=== PATIENT | male | born 1990 | race African-American/Black ===

== ENCOUNTER 2025-02-02 16:57 | Emergency (ER) | payer SELFPAY ==
--- NOTE | ~2025-02-02 | XR_ITS ---
CHEST RADIOGRAPH, PA AND LATERAL CLINICAL HISTORY: LEFT MID BACK PAIN X 5 DAYS, NO TRAUMA . COMPARISON: None available TECHNIQUE: PA and lateral views of the chest. FINDINGS The cardiomediastinal silhouette is unremarkable. The lungs are clear. IMPRESSION: No focal infiltrate or effusion. Reviewed, dictated and finalized at location A.
[2025-02-02 16:59] VITALS: BP 141/98; PULSE 98; RESP 16; TEMP 36.8; O2SAT 100
--- NOTE | 2025-02-02 17:24 | ED_ITS ---
HPI - Back Pain/Injury General Chief Complaint: Back Pain/Injury Stated Complaint: back pain Time Seen by Provider: 02/02/25 17:16 Source: patient Mode of arrival: ambulatory Limitations: no limitations History of Present Illness HPI Narrative: 34 YEARS OLD MALE CAME TO THE ED BY PRIVATE CAR COMPLAINING OF WAKING UP WITH LEFT MID BACK PAIN AROUND LEFT LOWER RIBS STARTED 5 DAYS AGO. PATIENT DENIES ANY TRAUMA, PATIENT BELIEVE SLEEPING WRONG HIGH LIKELY THE UNDERLYING CAUSE OF HIS PAIN. PATIENT BEEN USING MUSCLE RELAXANT WITHOUT ANY IMPROVEMENT. PAIN IS SHARP, STABBING, WORSE WITH ANY MOVEMENT INCLUDING DEEP BREATHING AND YAWNING AND TRYING TO GET UP FROM SITTING POSITION OR SITTING FROM STANDING POSITION. PATIENT DENIES ANY FEVER, CHILLS, RADIATION OF PAIN, CHEST PAIN, SHORTNESS OF BREATH. Related Data Allergies Allergy/AdvReac Type Severity Reaction Status Date / Time No Known Allergies Allergy Verified 02/02/25 16:58 Review of Systems Review of Systems: All systems reviewed & are unremarkable except as noted in HPI and below Exam Narrative: GENERAL APPEARANCE: WELL-DEVELOPED, WELL-NOURISHED SKIN: NORMAL COLOR HEAD: NORMOCEPHALIC, NONTRAUMATIC EYES: CLEAR CONJUNCTIVA ENT: OROPHARYNX NORMAL, EARS NORMAL, NOSE NORMAL NECK: SUPPLE, NONTENDER CHEST AND RESPIRATORY: AIRWAY PATENT, NO RESPIRATORY DISTRESS, NO ACCESSORY MUSCLE USE HEART: REGULAR RATE/RHYTHM ABDOMEN: SOFT, NONTENDER, NO ORGANOMEGALY, QUIET BOWEL SOUNDS VASCULAR: NORMAL PERIPHERAL PULSES, NORMAL CAPILLARY REFILL. 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, NO GROSS MOTOR DEFICIT Course Vital Signs Vital signs: Vital Signs Temperature 36.8 C 02/02/25 16:59 Pulse Rate 98 02/02/25 16:59 Respiratory Rate 16 02/02/25 16:59 Blood Pressure 141/98 H 02/02/25 16:59 Pulse Oximetry 100 02/02/25 16:59 Temperature 36.8 C 02/02/25 16:59 Pulse Rate 98 02/02/25 16:59 Respiratory Rate 16 02/02/25 16:59 Blood Pressure 141/98 H 02/02/25 16:59 Pulse Oximetry 100 02/02/25 16:59 MDM - Back Pain/Injury MDM Narrative Medical decision making narrative: PATIENT WAKE UP WITH MID BACK PAIN STARTED 5 DAYS AGO, NO TRAUMA VITAL SIGNS ARE STABLE PHYSICAL EXAMINATION SHOWING [id number] TENDERNESS LEFT MID BACK AT THE LOWER RIBS AREA, DIFFERENTIAL DIAGNOSIS INCLUDE MUSCULOSKELETAL, PNEUMONIA, PNEUMOTHORAX, SHINGLES. CHEST X-RAY ORDERED AND SHOWED NO ACUTE ABNORMALITY PATIENT RECEIVED IBUPROFEN AND TYLENOL IN THE ED PRIOR TO DISCHARGE. Differential Diagnosis Differential diagnosis: Likely other ( ABOVE) Imaging Data Radiologist's impression: Impressions Chest X-Ray 02/02/25 17:58 IMPRESSION: No focal infiltrate or effusion. Discharge Plan Discharge Clinical Impression: Back pain Patient Disposition: Home Condition: Stable Instructions: Back Pain (ED) Additional Instructions: RETURN IF SYMPTOMS ARE WORSENING , CALL YOUR FAMILY PHYSICIAN FOR APPOINTMENT, TAKE TYLENOL NEEDED FOR ACHES AND PAIN, CONTINUE HOME MEDICATIONS. HEATING PAD MASSAGE BACK EXERCISE Patient Language: Vietnamese Prescriptions: New diclofenac sodium 75 mg tablet,delayed release (DR/EC) 75 mg PO BID PRN (Reason: pain) Qty: 14 0RF cyclobenzaprine 10 mg tablet 10 mg PO TID PRN (Reason: muscle spasm) Qty: 20 0RF Follow-up/Referrals: PHYSICIAN NOT ON STAFF,NONSTAFF [Primary Care Provider] -
--- OUTSIDE RECORDS SUMMARY | 2025-02-02 18:37 | XMS_ITS | Clinical Summary ---
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 Gender Identity Not on file Sexual Orientation Not on file Plan of Treatment Health Maintenance Due Date Last Done Comments Hepatitis C Virus (HCV) Screening 1989 TdaP Immunization 1989 Human Papillomavirus (HPV) Immunization (1 - 3-dose SCDM series) 2016 SARS-COV-2 Immunization (2023- season) 2024 Influenza Immunization (#1) 2025 Respiratory Syncytial Virus (RSV) Immunization (Adult) (1 - 1-dose 75+ series) 2064 Hepatitis B Immunization Completed 999, 11/18/1997, 08/28/1997 DTaP/Tdap/Td Immunization Discontinued 2003, 07/27/1994, 01/02/1991, Additional history exists Meningococcal Immunization (ACWY) Aged Out No longer eligible based on patient's age to complete this topic Pneumococcal Immunization Combined Aged Out No longer eligible based on patient's age to complete this topic Rotavirus Immunization Aged Out No lo nger eligible based on patient's age to complete this topic
--- OUTSIDE RECORDS SUMMARY | 2025-02-02 18:37 | XMS_ITS | Clinical Summary ---
Author Organization [facility] Address [address] [place] [address] Phone Care Team Providers Care Solutions Engineer Name Role Phone Sunday Botello DO Primary Care Provid er Allergies No known active allergies Medications valACYclovir (VALTREX) 500 mg tablet TAKE 1 TABLET(500 MG) BY MOUTH TWICE DAILY FOR 3 DAYS 6 tablet 2 10/04/2023 Active escitalopram (LEXAPRO) 5 mg tabletIndication s:Anxiety Take 1 tablet (5 mg total) by mouth daily 30 tablet 3 12/27/2023 Active propranoloL (INDERAL) 10 mg tabletIndication s:Anxiety Take 1 tablet (10 mg total) by mouth 2 (two) times a day as needed (anxiety) 60 tablet 3 12/27/2023 Active Active Problems Problem Noted Date Diagnosed Date BMI 29.0-29.9,adult 10/04/2023 Assessment & Plan (10/04/2023 10:01 AM CDT): BMI Follow-up includes: nutrition counseling, exercise counseling, and education provided. Encounter for preventive health examination 09/17 Assessment & Plan (10/04/2023 10:54 AM CDT): -Continue tobacco avoidance, alcohol consumption in moderation, if any -Continue excellent lifestyle with regular aerobic and strength training exercise -Obtain baseline CMP, CBC, lipid panel today -There is no specific style of eating that has been shown to be better than another as far as achieving weight loss. I do recommend a diet high in fresh fruits/vegetables, high in whole grains, high in omega 3 fatty acids, low in saturated fats, low in processes foods, and low in sugary drinks. Some examples of common eating style that people try include ketogenic diet, Mediterranean diet, intermittent fasting. In general, most people do not need more than 2000 calories per day. It can be occasionally helpful to track how many calories one is consuming to establish a baseline. Cutting back 300-500 calories per day from the baseline will often gradually lead to sustained weight loss. An important thing to remember is to think of this as a complete lifestyle change as opposed to going on a diet temporarily. Find a style of eating that works for you and feels like it will be sustainable for the oysterman. -I encourage at least 300 minutes of light intensity activity/week, 150 minutes of moderate intensity physical activity per week, or 90 minutes of high intensity activity/week. Think about this as the Sing, Talk, Breathe Method. This means you should be able to sing during light intensity workout, talk during moderate intensity workout, and only breathe during high intensity workout. Ideally this should be a combination of aerobic activity for cardiovascular health and resistance training to increase muscle mass and bone density. -I recommend at least 7.5 hours of sleep time per night. If feasible, it can be useful to obtain a fitness tracking device which monitor sleep patterns to ensure that you are getting enough sleep. -If interested in building muscle mass, I recommend resistance training between 12-20 sets per week for the targeted muscle group. Rep ranges between 6-20 are effective for muscle building as long as each set is taken close to failure. I also recommend 1.5g protein per kg of body weight daily, and sleeping at least 7.5 hours per night. If interested, it is safe to take creatine supplementation 5g daily with food (can cause intestinal discomfort when taken without food). Routine screening for STI (sexually transmitted infection) 10/04/2023 Assessment & Plan (10/04/2023 10:54 AM CDT): Reviewed his ex-girlfriend's recent Trichomonas diagnosis. Will send STD panel. Anogenital herpes simplex virus (HSV) infection 10/04/2023 Assessment & Plan (10/04/2023 10:55 AM CDT): No active lesions, refilled Valacyclovir Genital warts 10/04/2023 Assessment & Plan (10/04/2023 10:59 AM CDT): Referral to dermatology due to extent of lesions Unilateral recurrent inguina l hernia without obstruction or gangrene 10/04/2023 Assessment & Plan (10/04/2023 10:59 AM CDT): Referral to surgery Family history of diabetes mellitus type II 09/17 Assessment & Plan (10/04/2023 11:00 AM CDT): Multiple family members, follow-up A1c, lipid, CMP Anxiety with depression 10/04/2023 Assessment & Plan (10/04/2023 11:01 AM CDT): Related to concerns over finances. Start Lexapro 5 mg, follow-up in 1 month. Start p.r.n. propranolol for moments of acute anxiety. Will try to avoid benzodiazepines. Need for hepatitis C screening test 10/04/2023 Assessment & Plan (10/04/2023 11:00 AM CDT): Check labs today Infertility counseling 10/04/2023 Assessment & Plan (10/04/2023 11:00 AM CDT): He is requesting further evaluation as he is concerned about his ability to have children. Refer to Reproductive Endocrinology Resolved Problems Problem Noted Date Diagnosed Date Resolved Date Anxiety 10/04/2023 10/04/2023 Immunizations Immunization Administration Dates Next Due DTP 07/27/1994, 1,01/10/1990,1989,0 1989 Hep A, Pediatric 01/19/2004 Hep B, Adolescent or Pediatric 05/03/1999,1997,08/28/1997 HiB 10/04/1990 Influenza, Unspecified 10/04/2023(Deferred: Kezia ent Refused) MMR 07/27/1994,10/04/1990 OPV 07/27/1994,01/02/1991,1989 ,1989 Td, adsorbed 01/19/2004 Medical History Medical History Date Comments HSV (herpes simplex virus) infection Anxiety Inguinal hernia Meningitis as a child Lichen planus diagnosed by ped iatrician at 7yo Family History Medical History Relation Name Comments No Known Problems Brother Diabetes type II Father Diabetes type II Mother HTN Mother Diabetes type II Paternal Grandmother No Known Problems Sister Relation Name Status Comments Brother Alive Father Alive Mother Alive Paternal Grandmother Sister Alive Social History Tobacco Use Types Packs/Day Years Used Date Smoking Tobacco: Some Days Vaping Tobacco Cessation:Ready to Q uit: Not Asked; Counseling Given: Not Answered AUDIT-C Answer Date Recorded Q1: How often do you have a drink containing alc ohol? 2-4 times a month 10/04/2023 Q2: How many drinks containi ng alcohol do you have on a typical day when you are drinking? 1 or 2 10/04/2023 Q3: How often do you have si x or more drinks on one occasion? Less than monthly 10/04/2023 PHQ-2 Answer Date Recorded PHQ-2 Total Score (If total score is 3 or more points, staff should administer the PHQ-9) 6 10/04/2023 Exercise Vital Sign Answer Date Recorde d On average, how many days pe r week do you engage in moderate to strenuous exercise (like a brisk walk)? 1 day 10/04/2023 On average, how many minutes do you engage in exercise at this level? 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 Gender Identity Not on file Sexual Orientation Not on file Obstetrics History Last Filed Vital Signs Vital Sign Reading Time Taken Comments Blood Pressure 130/78 10/04/2023 9:56 AM CDT Pulse 107 10/04/2023 9:56 AM CDT Temperature 37.2 C (98.9 F) 09/08/2022 9:00 PM CDT Respiratory Rate 16 09/08/2022 7:47 PM CDT Oxygen Saturation 97% 10/04/2023 9:56 AM CDT Inhaled Oxygen Concentration - - Weight 96.6 kg (213 lb) 10/04/2023 9:56 AM CDT Height 180.3 cm (5' 11) 10/04/2023 9:56 AM CDT Body Mass Index 29.71 10/04/2023 9:56 AM CDT Plan of Treatment Health Maintenance Due Date Last Done Comments DTaP/Tdap/Td Vaccine (6 - Tdap) 01/20/2004 01/19/2004, 07/27/1994, 01/02/1991, Additional history exists HPV Vaccines (1 - 3-dose SCD M series) 2016 Depression Screening 10/03/2024 10/04/2023, 10/04/2023, 11/26/2021 Regular Well Visit/Exam 18-64 10/03/2024 10/04/2023 Influenza Vaccine (#1) 2025 Hepatitis B Screening Completed 05/03/1999 , 11/18/1997, 08/28/1997 Hepatitis C Screening Completed 10/04/2023, 022 Pneumococcal vaccine <65 Discontinued Varicella Vaccines Discontinued Procedures Procedure Name Priority Date/Time Associated Diagnosis Comments HEPATITIS C ANTIBODY Routine 10/04/2023 11:10 AM CDT Routine screening for STI (sexually transmitted infection) Need for hepatitis C screening test from Last 3 Months or Most Recently Relevant to Health Maintenance Results * Hepatitis C antibody Blood (10/04/2023 11:10 AM CDT) Hep C Ab Nonreactive Nonreactive Comment: Interpretive Data Nonreactive: Antibodies to HCV not detected. Does NOT exclude the possibility of recent exposure to HCV. Equivocal: Equivocal for HCV antibodies. Supplemental molecular testing will be automatically performed to determine infection status in accordance with current CDC screening recommendations. Reactive: Positive for HCV antibodies. This may represent current or past HCV infection. Supplemental molecular testing will be automatically performed to determine current infection status in accordance with current CDC screening recommendations. Interpretive data was last revised on 2019. Testing performed by: [facility], [facility] [facility], [place]., [address] Blood 10/04/2023 11:1 0 AM CDT 10/04/2023 2:06 PM CDT Sunday Botello DO LAB MICROBIO LOGY - GENERAL ORDERABLES Edited Result - Final [facility] [id number] [address]. [place] [address] from Last 3 Months or Most Recently Relevant to Health Maintenance Care Teams Solutions Engineer Relationship Specialty Start Date End Date Sunday Botello DO PCP - General Family Medicine 10/05/23
[2025-02-02] MEDS: ACETAMINOPHEN 500 MG TABLET 1000 MG PO (18:41)
[2025-02-02] MEDS: IBUPROFEN 400 MG TABLET 800 MG PO (18:41)
[2025-02-02 19:45] VITALS: BP 139/89; PULSE 89; RESP 19; O2SAT 99
[2025-02-02 19:46] VITALS: BP 139/89; PULSE 89; RESP 19; O2SAT 99
== END 2025-02-02 19:48 | disposition home or self-care (01) ==
PROVIDERS: Emergency Provider Emergency Medicine
DX: M54.6 Pain in thoracic spine (principal)
CPT/HCPCS: 71046; 99283; A9270